=== PATIENT | male | born 1955 | race Caucasian/White ===

== ENCOUNTER 2021-05-03 02:10 | Emergency (ER) | payer MEDICARE, BC ==
[~2021-05-03] VITALS: Ht 188 cm; Wt 68.0 kg
--- NOTE | 2021-05-03 02:14 | NUR ---
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 pt [id number] breathing evenly and unlabored. Pt states that he had a prostate biopsy today and could urinate easily, but suddenly has been unablet to and that bladder feels "full". pt attached to monitor and pox. Pt given call light within reach. Will continue to monitor.
[2021-05-03] MEDS ORDERED: LIDOCAINE 2% JEL UROJET 10 ML MM ONE ×3 (02:30→03:01)
--- NOTE | 2021-05-03 03:14 | NUR ---
URINE SENT TO LAB
[2021-05-03 03:27] LABS: BILIRUBIN,URINE SMALL (NEGATIVE); LEUKOCYTE ESTERASE ,URINE NEGATIVE (NEGATIVE); NITRITE, URINE NEGATIVE (NEGATIVE); PH,URINE 6.5 (5.0-8.0); PROTEIN,URINE NEGATIVE (NEGATIVE); UGLUCOSE NEGATIVE (NEGATIVE); UROBILINOGEN,URINE 0.2 EU/dL (0.2)
[2021-05-03 03:34] LABS: COLOR,URINE OTHER (YELLOW)
[2021-05-03 03:39] LABS: BACTERIA,URINE None seen /HPF (None Seen); SQUAMOUS EPITHELIAL CELL,UR None Seen /HPF (None Seen); WBC,URINE 0-2 /HPF (0-3)
--- NOTE | 2021-05-03 03:49 | NUR ---
Patient discharged to home in stable condition. Written and verbal after care instructions given. Patient verbalizes understanding of instruction.
--- NOTE | 2021-05-03 03:49 | NUR ---
Patient provided with a leg bag.
[2021-05-03 04:24] VITALS: BP 154/77
== END 2021-05-03 03:49 | disposition home or self-care (01) ==
LOC: ER 02:19
DX: R33.9 Retention of urine, unspecified (principal); Z88.0 Allergy status to penicillin; Z88.1 Allergy status to other antibiotic agents; Z85.46 Personal history of malignant neoplasm of prostate
CPT/HCPCS: 81001; 99283; J3490 ×2